=== PATIENT | female | born 1980 | race Caucasian/White ===

== ENCOUNTER 2016-05-02 08:00 | Inpatient (IN) | payer OTHER ==
[~2016-05-02] VITALS: Ht 172.7 cm; Wt 76.0 kg
[2016-05-02] VITALS (23 sets, daily range): BP systolic 100–131; BP diastolic 54–72
[2016-05-02] MEDS ORDERED: PRENTAB55 PO (08:22)
[2016-05-02] MEDS ORDERED: IRON50TA PO (08:26)
[2016-05-02 08:57] LABS: MEAN CORPUSCULAR HEMOGLOBIN 30.4 pg (27.0-33.0); MEAN CORPUSCULAR HGB CONC 32.9 g/dl (32.0-36.5); MEAN CORPUSCULAR VOLUME 92.5 fl (80.0-96.0); RED CELL DISTRIBUTION WIDTH 12.3 % (11.5-14.5); WHITE BLOOD COUNT 6.9 K/mm3 (4.0-10.0)
[2016-05-02] MEDS ORDERED: OXYTOCIN DRIP 30 UNITS in APPROPRIATE DILUENT 1 EA IV SCH (09:30)
[2016-05-02] MEDS: LR 1,000 ML IV SCH ×2 (09:45→15:38)
[2016-05-02] MEDS ORDERED: BICITRA 30ML SOLN UDC As Ordered ONE (17:54)
[2016-05-02] MEDS ORDERED: PROPOFOL 200 MG/20 ML VIAL As Ordered ONE (18:01)
[2016-05-02] MEDS ORDERED: MIDAZOLAM INJ 2 MG/2 ML VIAL (J2250) As Ordered ONE (18:07)
[2016-05-02] MEDS ORDERED: ceFAZolin 2 GM/D5W 50 ML IV BAG (J0690) As Ordered ONE (18:08)
[2016-05-02] MEDS ORDERED: fentaNYL 100 MCG/2 ML INJECTION (J3010) As Ordered ONE (18:08)
[2016-05-02 18:21] LABS: CORD GAS ABE V -3.4; CORD GAS HCO3 V 23.5 MEQ/L; CORD GAS O2 SAT V 61.4 %; CORD GAS PCO2 V 49.3 mmHg; CORD GAS PH V 7.297 UNITS; CORD GAS PO2 V 27.1 mmHg; CORD GAS SBC V 20.8 MEQ/L; CORD GAS TCO2 V 25.1 MEQ/L
[2016-05-02] MEDS ORDERED: ONDANSETRON 4MG/2ML VIAL (J2405) As Ordered ONE (18:23)
[2016-05-02] MEDS ORDERED: ePHEDrine SULFATE 25 MG/5 ML(5MG/ML) SYRINGE As Ordered ONE (18:23)
[2016-05-02 18:28] LABS: CORD GAS HCO3 A 25.6 MEQ/L; CORD GAS O2 SAT A 15.1 %; CORD GAS PCO2 A 60.8 mmHg; CORD GAS PH A 7.242 UNITS; CORD GAS PO2 A 11.6 mmHg; CORD GAS SBC A 20.1 MEQ/L; CORD GAS TCO2 A 27.5 MEQ/L
[2016-05-02] MEDS ORDERED: KETOROLAC 60 MG/2 ML VIAL (J1885) As Ordered ONE (18:31)
[2016-05-02] MEDS ORDERED: MORPHINE PCA 1MG/ML 100ML CADD As Ordered ONE (18:40)
[2016-05-02] MEDS ORDERED: LR 1,000 ML IV SCH ×2 (18:46→19:15)
[2016-05-02] MEDS ORDERED: NS 1,000 ML IV SCH (18:50)
[2016-05-02] MEDS ORDERED: diphenhydrAMINE INJ 50MG/ML VIAL (J1200) IV PRN (19:00)
[2016-05-02] MEDS ORDERED: NALOXONE INJ 0.4 MG/1 ML VIAL (J2310) IV PRN (19:00)
[2016-05-02] MEDS ORDERED: NALBUPHINE HCL 10 MG/ML AMP (J2300) IV PRN (19:00)
[2016-05-02] MEDS ORDERED: PROMETHAZINE 25 MG TAB PO PRN (19:00)
[2016-05-02] MEDS ORDERED: MEASLES,MUMPS,RUBELLA VACCINE INJ (MMR-II) (90707) SC SCH (19:00)
[2016-05-02] MEDS ORDERED: PERCOCET 5MG/325MG TAB PO PRN (19:00)
[2016-05-02] MEDS ORDERED: EPIDURAL/PCA KEYS XX PRN (19:00)
[2016-05-02] MEDS ORDERED: RHOGAM 300 MCG (1500 IU) INJ (J2790) IM SCH (19:00)
[2016-05-02] MEDS ORDERED: NORCO, ANEXSIA 5/325MG TABLET (HYDROcodone/ACETAMINOPHEN) PO PRN (19:00)
[2016-05-02] MEDS ORDERED: MORPHINE PCA 1MG/ML 100ML CADD IV PRN (19:00)
[2016-05-02] MEDS ORDERED: ONDANSETRON 4MG/2ML VIAL (J2405) IV PRN ×2 (19:00→19:15)
[2016-05-02] MEDS ORDERED: METHYLERGONOVINE MALEATE 0.2 MG/ML VIAL (J2210) IM PRN (19:00)
[2016-05-02] MEDS ORDERED: MEPERIDINE INJ 25 MG/ML VIAL (J2175) As Ordered ONE (19:11)
[2016-05-02] MEDS ORDERED: fentaNYL 100 MCG/2 ML INJECTION (J3010) IV PRN (19:15)
[2016-05-02] MEDS ORDERED: MORPHINE 2 MG/ML 1ML SYRINGE IV PRN (19:15)
[2016-05-02] MEDS ORDERED: METOCLOPRAMIDE INJ 10MG/2ML VIAL (J2765) IV PRN (19:15)
[2016-05-02] MEDS: MEPERIDINE INJ 25 MG/ML VIAL (J2175) IV PRN ×2 (19:20→19:26)
[2016-05-02] MEDS: DOCUSATE SODIUM 100 MG CAP PO SCH (21:00)
[2016-05-03] MEDS: KETOROLAC 30 MG/ML VIAL (J1885) IV SCH ×4 (01:38→18:49)
[2016-05-03 02:00] VITALS: BP 122/55
[2016-05-03 06:00] VITALS: BP 116/59
[2016-05-03] MEDS: PRENATAL VITAMIN TAB PO SCH (07:36)
[2016-05-03] MEDS: DOCUSATE SODIUM 100 MG CAP PO SCH ×2 (07:36→21:11)
[2016-05-03 08:02] LABS: MEAN CORPUSCULAR HEMOGLOBIN 32.5 pg (27.0-33.0); MEAN CORPUSCULAR HGB CONC 34.2 g/dl (32.0-36.5); RED CELL DISTRIBUTION WIDTH 12.3 % (11.5-14.5); WHITE BLOOD COUNT 8.8 K/mm3 (4.0-10.0)
[2016-05-03 10:00] VITALS: BP 99/54
[2016-05-03 14:00] VITALS: BP 111/57
[2016-05-03 18:00] VITALS: BP 106/59
[2016-05-03] MEDS: PERCOCET 5MG/325MG TAB PO PRN ×2 (19:43→23:23)
[2016-05-03 21:32] VITALS: BP 127/58
[2016-05-04] MEDS: PERCOCET 5MG/325MG TAB PO PRN ×3 (03:28→10:46)
[2016-05-04] MEDS: IBUPROFEN 800 MG TAB PO SCH ×2 (03:29→10:41)
[2016-05-04 05:26] VITALS: BP 127/66
[2016-05-04] MEDS: PRENATAL VITAMIN TAB PO SCH (07:37)
[2016-05-04] MEDS: DOCUSATE SODIUM 100 MG CAP PO SCH (07:37)
--- NOTE | 2016-05-04 12:30 | IPNPDOC ---
Text Note Date of Service The patient was seen on 05/04/16. NOTE PPD#2 s/p PLTCS S: Catalina is a 35yo [id number] s/p uncomplicated emergent PLTCS for cord prolapse/NRFHT on 05/02, doing well on POD 2. Pain is well controlled on PO medications, lochia appropriate, voiding spontaneously without problem, tolerating a regular diet, ambulating without difficulty. No f/c/n/v/ANDRADE. Breast feeding without issue. O: normotensive, nml HR, afebrile H: RRR no m/g/r L: CTA b/l no w/c/r/r Abd: soft, appropriately tender, and FF at U-1cm, nontender; pfannensteil incision well approximated with steri strips overlying, no drainage/erythema/ induration Ext: 1+ pitting edema of BLE Labs: Hct on admission 35.5 Hct on 05/03: 25 A/P: Catalina is a 35yo [id number] s/p uncomplicated emergent PLTCS for cord prolapse/NRFHT on 05/02, doing well on POD 2. Hemodynamically stable, afebrile with no evidence of infection, good pain control. -discharge to home today -follow-up visit in clinic in 2 weeks for incision check then at 6wk for routine visit -will discuss contraception at next visit -has discharge medications: percocet, motrin, colace, lanolin Dr. Zbigniew Hugo MD [facility] VS,Fishbone, I+O VS, Fishbone, I+O Vital Signs Date Time Temp Pulse Resp B/P Pulse Ox O2 Delivery O2 Flow Rate FiO2 05/04/16 10:46 18 Room Air 05/04/16 05:26 97.4 80 127/66 05/03/16 21:32 99 05/02/16 19:33 2 I&O- Last 24 Hours up to 6 AM 05/04/16 06:00 Output Total 1400 ml Balance -1400 ml ZBIGNIEW HUGO MD May 04, 2016 12:30
--- NOTE | 2016-05-04 12:39 | DS.PDOC ---
Discharge Summary General Date of Admission May 02, 2016 at 08:00 Date of Discharge May 04, 2016 Attending Physician: ZBIGNIEW HUGO MD Discharge Summary PROCEDURES PERFORMED DURING STAY: primary low transverse section ADMITTING DIAGNOSES: 1. term intrauterine with unstable lie and polyhydramnios with scheduled induction of labor 2. advanced maternal age DISCHARGE DIAGNOSES: 1. term intrauterine with unstable lie and polyhydramnios with scheduled induction of labor 2. advanced maternal age 3. status-post uncomplicated emergent primary low transverse section for cord prolapse/non-reassuring heart rate tracing COMPLICATIONS/CHIEF COMPLAINT: Induction of labor for unstable lie in the setting of polyhydramnios at term HISTORY OF PRESENT ILLNESS/ HOSPITAL COURSE: Catalina is a 35 year old [id number] admitted for induction of labor for unstable lie in the setting of polyhydramnios at term, now status post uncomplicated emergent primary low transverse section with general endotracheal anesthesia indicated for cord prolapse/non-reassuring heart rate tracing on 05/02. She has had a benign /post-operative course with no complications. She has remained hemodynamically stable and afebrile with no evidence of infection. DISCHARGE MEDICATIONS: percocet, motrin, colace, lanolin ALLERGIES: Please see below. PHYSICAL EXAMINATION ON DISCHARGE: O: normotensive, nml HR, afebrile H: RRR no m/g/r L: CTA b/l no w/c/r/r Abd: soft, appropriately tender, and FF at U-1cm, nontender; pfannensteil incision well approximated with steri strips overlying, no drainage/erythema/ induration Ext: 1+ pitting edema of BLE LABORATORY DATA: Please see below. ACTIVITY: walking encouraged, vaginal rest for 6 weeks, no heavy lifting greater than weight of baby DIET: regular DISPOSITION: home DISCHARGE INSTRUCTIONS: 1. Vaginal rest for 6 weeks 2. No heavy lifting greater than weight of baby 3. Keep incision clean and dry, ok to remove steri strips 1 week after surgery 4. Incision check in 2 weeks in clinic then routine 6 week visit DISCHARGE CONDITION: Stable TIME SPENT ON DISCHARGE: Greater than [address] Zbigniew Hugo MD [facility] Vital Signs/I&Os Vital Signs Date Time Temp Pulse Resp B/P Pulse Ox O2 Delivery O2 Flow Rate FiO2 05/04/16 10:46 18 Room Air 05/04/16 05:26 97.4 80 127/66 05/03/16 21:32 99 05/02/16 19:33 2 I&O- Last 24 Hours up to 6 AM 05/04/16 06:00 Output Total 1400 ml Balance -1400 ml Discharge Medications Scheduled Ferrous Sulfate (Iron (Ferrous Sulfate)) 50 Mg Tab 325 MG PO DAILY (Reported) Multivitamins/ ( 19) 1 Tab Tab 1 TAB PO DAILY (Reported) Allergies Coded Allergies: No Known Drug Allergy (Verified Allergy, Unknown, 05/02/16) ZBIGNIEW HUGO MD May 04, 2016 12:39
[2016-05-04] MEDS ORDERED: OXYC1TAB23 PO ×2 (12:56)
[2016-05-04] MEDS ORDERED: IBUP-1114 PO (12:56)
[2016-05-04] MEDS ORDERED: COLA100C PO (12:56)
== END 2016-05-04 14:45 | disposition home or self-care (01) | DRG 765 ==
LOC: M LDI 08:00 → M OBS 20:00
PROVIDERS: ADMIT Obstetrics & Gynecology; ATTEND Obstetrics & Gynecology
PROC: 10D00Z1 Extraction of Products of Conception, Low, Open Approach (ICD-10-PCS; principal; 2016-05-02 18:37)
DX: O76 Abnormality in fetal heart rate and rhythm complicating labor and delivery (principal); O40.3XX0 Polyhydramnios, third trimester, not applicable or unspecified; Z37.0 Single live birth; Z3A.40 40 weeks gestation of pregnancy; O09.523 Supervision of elderly multigravida, third trimester; O32.0XX0 Maternal care for unstable lie, not applicable or unspecified; O69.0XX0 Labor and delivery complicated by prolapse of cord, not applicable or unspecified; O48.0 Post-term pregnancy